=== PATIENT | male | born 1960 | race Caucasian/White ===

== ENCOUNTER 2016-11-30 21:19 | Emergency (ER) | payer SELFPAY ==
[~2016-11-30] VITALS: Ht 177.8 cm; Wt 81.8 kg
[2016-11-30 21:58] VITALS: BP 144/103
== END 2016-11-30 23:00 | disposition left against medical advice (07) ==
LOC: EME 21:19
DX: F10.99 Alcohol use, unspecified with unspecified alcohol-induced disorder (principal); Z53.21 Procedure and treatment not carried out due to patient leaving prior to being seen by health care provider